=== PATIENT | female | born 1980 | race Caucasian/White ===

== ENCOUNTER 2023-06-03 08:44 | Day surgery (SDC) | payer OTHER ==
[2023-05-30 11:33] VITALS: BMI 37.8
[2023-05-30 13:33] LABS: Hemoglobin 15.2 g/dL (12.0-15.5); Mean Corpuscular HGB CONC 33.8 g/dL (32.0-36.0); Mean Corpuscular Hemoglobin 31.6 pg (27.0-33.0); Mean Corpuscular Volume 93.6 fl (81.6-98.3); Mean Platelet Volume 11.5 fl (7.4-10.4); Platelet Count 320 10x3/uL (150-450); RBC Distribution Width 11.9 % (11.5-14.5); Red Blood Cell (RBC) Count 4.81 10x6/uL (3.90-5.03); White Blood Cell (WBC) Count 14.4 10x3/uL (3.5-10.5)
[2023-05-30 13:47] LABS: BHCG - Serum Negative (NEGATIVE); Pregs Control Background? CLEAR/WHITE (CLR/WHITE); Pregs Control Bar Appear? YES (CONTROL BAR)
[2023-06-03] MEDS ORDERED: Famotidine/PF 20 mg/2ml Vial ONE (09:07)
[2023-06-03] MEDS ORDERED: Gabapentin 300 MG CAP ONE (09:07)
[2023-06-03] MEDS ORDERED: CeleCOXIB 100 MG CAP ONE (09:07)
[2023-06-03] MEDS ORDERED: Lidocaine 0.5%/Epinephrine 1:200,000 50 ml Vial ONE (09:11)
[2023-06-03] MEDS ORDERED: Vasopressin 20 UNITS/ML VIAL ONE (09:12)
[2023-06-03] MEDS ORDERED: Oxytocin 10 UNITS/ML VIAL ONE (09:25)
[2023-06-03] MEDS ORDERED: metroNIDAZOLE 500 MG/100 ML BAG ONE (09:56)
[2023-06-03] MEDS ORDERED: Scopolamine 1.5 mg/72 hour Patch ONE (10:04)
[2023-06-03] MEDS ORDERED: fentaNYL 50 mcg/mL 1 mL Vial ONE ×4 (10:16→13:37)
[2023-06-03] MEDS ORDERED: PROPOFOL 20 ML ONE (10:16)
[2023-06-03] MEDS ORDERED: Ondansetron PF 4 MG/2 ML Vial ONE (10:17)
[2023-06-03] MEDS ORDERED: Dexamethasone 20 MG/5 ML VIAL ONE (10:17)
[2023-06-03] MEDS ORDERED: CEFAZOLIN 2 GM VIAL ONE (10:20)
[2023-06-03] MEDS ORDERED: Dexmedetomidine 200 MCG/2 ML VIAL ONE (10:24)
[2023-06-03] MEDS ORDERED: Midazolam HCl 2 mg/2 ml Vial ONE (10:33)
[2023-06-03] MEDS ORDERED: Glycopyrrolate 0.2 MG/ML 5 ML SYRINGE ONE (12:01)
[2023-06-03] MEDS ORDERED: Ketorolac Tromethamine 30 MG/ML VIAL ONE (12:01)
[2023-06-03] MEDS ORDERED: Meperidine HCl/PF 25 MG/ML VIAL ONE (12:55)
[2023-06-03] MEDS ORDERED: oxyCODONE 5 MG TAB ONE (15:25)
== END 2023-06-03 15:55 | disposition home or self-care (01) ==
LOC: CSHSDC 08:44
PROVIDERS: ATTEND Student in an Organized Health Care Education/Training Program
PROC: 0UB74ZZ Excision of Bilateral Fallopian Tubes, Percutaneous Endoscopic Approach (ICD-10-PCS; principal; 2023-06-03)
PROC: 0UT94ZZ Resection of Uterus, Percutaneous Endoscopic Approach (ICD-10-PCS; principal; 2023-06-03)
PROC: 0JQC0ZZ Repair Pelvic Region Subcutaneous Tissue and Fascia, Open Approach (ICD-10-PCS; principal; 2023-06-03)
DX: D25.9 Leiomyoma of uterus, unspecified (principal); N80.03 Adenomyosis of the uterus; N81.6 Rectocele; N93.9 Abnormal uterine and vaginal bleeding, unspecified; G89.18 Other acute postprocedural pain; E66.9 Obesity, unspecified; Z68.37 Body mass index [BMI] 37.0-37.9, adult; F41.8 Other specified anxiety disorders; Z87.891 Personal history of nicotine dependence; Z79.899 Other long term (current) drug therapy
CPT/HCPCS: 84703; 85027; 86850; 86900; 86901; 88307; J1100; J1885; J2001; J2175; J2250; J2405; J2590; J2704; J3010; S0028